=== PATIENT | female | born 1940 | race Caucasian/White ===

== ENCOUNTER → 2025-08-20 16:41 | Outpatient (REF) | payer MEDICARE, SELFPAY | LOC: MRI 3T 16:41 | PROVIDERS: ATTENDING PHYSICIAN Surgery; FAMILY PHYSICIAN Family Medicine | DX: C50.412 Malignant neoplasm of upper-outer quadrant of left female breast (principal); Z17.0 Estrogen receptor positive status [ER+] | CPT/HCPCS: 77049; A9585 ==

== ENCOUNTER → 2025-09-24 09:24 | Outpatient (REF) | payer MEDICARE, SELFPAY | LOC: WDC 09:24 | PROVIDERS: ATTENDING PHYSICIAN Surgery | DX: C50.412 Malignant neoplasm of upper-outer quadrant of left female breast (principal) | CPT/HCPCS: 19285; 19286; A4648 ==

== ENCOUNTER 2025-09-28 06:46 | Day surgery (SDC) | payer MEDICARE, SELFPAY ==
[2025-09-16 13:52] VITALS: BMI 25.4
[2025-09-28] VITALS (9 sets, daily range): BP systolic 104–167; BP diastolic 74–119; BMI 24.3
[2025-09-28] MEDS: TYLENOL 1000 MG PO (15:32)
--- NOTE | 2025-09-28 19:36 | W.IMMPOSTOP ---
Surgical Immed Post Op Note
-
Primary Surgeon: Wilbur
Assisting Surgeon: None
Pre-op Diagnosis: Left breast ca
Post-op Diagnosis: Same
Procedure Performed: Left localized lumpectomy
Anesthesia Type: LMA
Specimen / Cultures: Left lumpectomy, margins, additional anterior and lateral tissue
Estimated Blood Loss: 10cc
Complications: Non
Operative Findings: Reflectors and clip in lumpectomy, second clip in anterior tissue
--- NOTE | 2025-09-28 19:38 | OR.RPT ---
Operative Report
Operative Report
Operative date: 09/28/2025
Surgeon: Wilbur
Preoperative diagnosis: Left breast carcinoma
Postoperative diagnosis: Same
Procedure: left localized lumpectomy
This patient is an 85-year-old female who had image detected left breast carcinoma. She had 2 foci and actually a third small probable intervening focus was detected in between the 2 lesions. She was desirable with breast conservation surgery and
after consulting with our plastic surgeon she will present for left lumpectomy including the 3 areas of interest and a simultaneous mastopexy bilaterally. Patient met criteria to forgo axillary surgical sampling. On the day prior to the procedure
the patient presented to the [facility] for placement of Josette reflectors. On the day of the procedure she presented to the same-day surgical services unit. She was prepped and verified site and procedures. DVT and antibiotic
prophylaxis were provided. She was transferred to the operating room.
In the supine position LMA general anesthesia was induced. Plastic surgery had marked the resection incisions and the chest was prepped and draped in the usual sterile fashion. An appropriate timeout procedure was performed by all staff members.
Plastic surgery began the mastopexy on the right side and I began on the left with the lumpectomy. Incision was marked by plastic surgery stayed within the boundaries to preserve the medial pedicle flap. Dissection was carried down to both areas.
The more anterior lesions Josette reflector was dislodged during the dissection and this was placed off the field to be returned for imaging with the specimen. Wide dissection was carried down incorporating both areas and the intervening tissue that
should contain the small area seen on ultrasound. There is a good Josette signal in the posterior site. Specimen was oriented for the pathologist and time out of body was noted. Specimen radiography confirmed the presence of 2 reflectors and a
posterior clip within it. Therefore an additional anterior and lateral specimen were sent and the anterior biopsy clip was present within that anterior specimen. Separate margins were sent under separate cover from the posterior, medial, superior,
lateral, inferior, and anterior dimensions. These were oriented as well.
Hemostasis was verified. A pack was placed in this resection cavity after hemoclips were placed and plastic surgery continued with the mastopexy's to be performed on both sides. All sponge needle and instrument counts were correct at this juncture.
([id number])
--- NOTE | 2025-09-28 20:23 | W.IMMPOSTOP ---
Surgical Immed Post Op Note
-
Primary Surgeon: MALIKA Alan MD
Assisting Surgeon:
Pre-op Diagnosis: Left breast cancer
Post-op Diagnosis: Same
Procedure Performed: Bilateral oncoplastic breast reduction
Anesthesia Type: General
Specimen / Cultures: Per Dr. Bowles, right and left breast tissue
Estimated Blood Loss: 30 cc
Complications: None
Operative Findings: As expected
--- NOTE | 2025-09-28 20:23 | OR.RPT ---
Operative Report
Operative Report
Date of surgery: 09/28/2025
Surgeon: MALIKA Alan MD
Preoperative diagnosis:
1. Left breast cancer
2. Macromastia
3. Planned radiation therapy
Postoperative diagnosis: Same
Procedure:
1. Bilateral oncoplastic breast reduction at the time of lumpectomy
Complications: None
Anesthesia: General
EBL: 30 cc
Specimens: Right and left breast tissue, remainder per Dr. Bowles
Indication for procedure: Patient is an 85-year-old female who was diagnosed with a left sided breast cancer. She had multiple sites of involvement and a large anticipated lumpectomy defect. She preferred lumpectomy and radiation over mastectomy.
As such Dr. Bowles referred her to me for consideration of bilateral oncoplastic reduction at the time of lumpectomy in order to minimize complications and prevent postoperative asymmetry. Risks of the procedure reviewed at length including scar
burden, hematoma, seroma, compromise of nipple areolar complex, downstream effects of radiation including fibrosis and persistent asymmetry. She understood these risk desire to proceed
Procedure in detail: Patient was identified preoperatively and the surgical site was confirmed to be the bilateral breast. Patient was marked in the upright position. Bilateral vertical pattern lift/reduction markings were made with a plan for an
inframammary extension. All questions were answered and consents were confirmed. Patient was taken back to the operative placed upon table. Anesthesia was induced and patient prepped and draped in usual sterile fashion. Timeout for patient
safety was performed to confirm that bilateral SCDs were in place and preoperative antibiotics have been administered. Procedure began with Dr. Bowles performing the lumpectomy on the left breast. Her operative port will be dictated separately.
On the right breast I performed a vertical pattern superior medial breast reduction left. More tissue was removed from the inferior pole of the right breast during this portion in anticipation of the effects of radiation to the left breast. A 42
mm cookie cutter was used to naz the nipple areolar complex. The pedicle was de-epithelialized. The remainder the tissue was excised using Bovie electrocautery. Meticulous hemostasis was ensured and a deep Marcaine block was performed prior to
closure. The medial and lateral pillars were then sutured together with a series of 2-0 Prolene. The nipple areolar complex was rotated and under no tension. It was inset with a series of 3 and 4-0 Monocryl sutures. Residual skin at the
inframammary fold was then marked for excision and an elliptical fashion. This was then closed in layers using INSORB stapler followed by 3-0 and 4-0 Monocryl. Following this attention was then drawn to the left side after Dr. Bowles had complete
her portion of the case. A large superior lateral defect remained after lumpectomy. A modified superior medial pedicle with inferior extension was drawn out to allow for transposition of the inferior tissue into the lumpectomy defect. As such,
less tissue was removed from the side again in anticipation of radiation and to correct the lumpectomy defect the nipple was marked with a 42 mm cookie cutter and the remainder of the pedicle was de-epithelialized. The pedicle with extension was
dissected free with Bovie electrocautery and transposed into place the medial lateral remaining pillars were then sutured in layers with 2-0 Prolene's. Marcaine block was performed deep. Nipple was inset with a series of 3-0 and 4-0 Biosyn.
Vertical pillar was closed with 0 and 4-0 Biosyn as well. An inferior wedge was then marked for excision this was removed sharply. It was then closed in layers with 3-0 and 4-0 Monocryl and the INSORB stapler. The patient tolerated the procedure
well was performed out complication. Bilateral nipple showed evidence of good perfusion without venous congestion. Wounds were dressed. All counts were correct at the end the case. Patient was extubated taken the PACU further care. A surgical
bra was placed for compression.
[2025-09-28] MEDS: ROXICODONE 5 MG PO (21:04)
== END 2025-09-28 21:45 | disposition home or self-care (01) ==
LOC: SDS 06:46
PROVIDERS: ATTENDING PHYSICIAN Surgery; FAMILY PHYSICIAN Family Medicine
DX: C50.912 Malignant neoplasm of unspecified site of left female breast (principal); Z17.0 Estrogen receptor positive status [ER+]
CPT/HCPCS: 19301; 76098; 88305; 88307; 88341; 88342; 88360